=== PATIENT | female | born 1975 | race Caucasian/White ===

== ENCOUNTER 2019-09-27 05:18 | Emergency (ER) | payer OTHER ==
[~2019-09-27] VITALS: Ht 165.1 cm; Wt 78.5 kg
[~2019-09-27 05:18] MED LIST: ALPRAZOLAM0.5 MG PO; CRUTCH1 EACH; NORCO 10-325 T1 EACH PO; NORCO 5-325 TA1 EACH PO
[2019-09-27] MEDS ORDERED: NORCO 5-325 TA1 EACH PO (06:54)
--- OUTSIDE RECORDS SUMMARY | 2019-09-27 07:28 | XMS ---
PreManage Notification: DASHA SINGH Security Frickertron Checker Events No recent Security Events currently on file [facility] There are no care providers on record at this time. Marian has no Care Guidelines for this patient. Gaudencio VISIT COUNT (12 MO.) 1 MARIMAR Ohara TOTAL 1 NOTE: Visits indicate total known visits. ED/UCC VISIT TRACKING (12 MO.) 09/27/2019 05:18 MARIMAR King [place] TYPE: Emergency COMPLAINT: - ABDOMINAL PAIN INPATIENT VISIT TRACKING (12 MO.) No inpatient visits to display in this time frame [email or web address]
== END 2019-09-27 07:20 | disposition home or self-care (01) ==
LOC: ED 05:18
DX: R10.32 Left lower quadrant pain (principal); F41.9 Anxiety disorder, unspecified; F17.200 Nicotine dependence, unspecified, uncomplicated; Z79.899 Other long term (current) drug therapy
CPT/HCPCS: 74176; 80053; 81001; 83690; 84703; 85025; 96374; 96375; 96376; 99284-25; J1885; J2405; J3010